=== PATIENT | male | born 2000 | race Two or more races ===

== ENCOUNTER → 2021-03-18 | Outpatient (CLI) | payer OTHER ==
[2021-03-18 12:10] LABS: ALBUMIN 3.5 g/dL (3.4-5.0); ALBUMIN/GLOBULIN RATIO 1.1 (1.0-1.7); C REACTIVE PROTEIN 179.9 mg/L (0-3.3); CALCIUM 8.7 mg/dL (8.5-10.1); CREATININE 0.8 mg/dL (0.7-1.3); TOTAL BILIRUBIN 0.9 mg/dL (0.2-1.0); TOTAL PROTEIN 6.8 g/dL (6.4-8.2)
[2021-03-18 12:20] LABS: BASO % 0 % (0-3); EOS # 0.1 x10^3/uL (0.0-0.7); EOS % 1 % (0-3); HEMATOCRIT 48.5 % (39.0-53.0); HEMOGLOBIN 16.3 g/dL (13.0-17.5); LYMPH # 1.6 x10^3/uL (1.0-4.8); LYMPH % 10 % (24-48); MEAN CORPUSCULAR HEMOGLOBIN 30 pg (25-35); MEAN CORPUSCULAR HGB CONC 34 g/dL (31-37); MEAN CORPUSCULAR VOLUME 88 fL (79-100); MONO # 1.5 x10^3/uL (0.0-1.1); MONO % 9 % (0-9); NEUT % 80 % (31-73); PLATELET COUNT 144 x10^3/uL (140-400); RED CELL DISTRIBUTION WIDTH 13.4 % (11.5-14.5); WHITE BLOOD COUNT 16.2 x10^3/uL (4.0-11.0)
[2021-03-18 13:51] LABS: SEDIMENTATION RATE 32 (0-15)
[2021-03-18 14:34] LABS: % ATYL 9 % (0-0); % BANDS 4 % (0-9); % LYMPHS 8 % (24-48); % MONOS 11 % (0-10); % SEGS 68 % (35-66)
[2021-03-18 14:36] LABS: PLT ESTIMATE ADEQUATE (ADEQUATE)
== END ==
LOC: SPEC 11:12 → EEVIPCON 11:12
PROVIDERS: ATTEND Family Medicine
DX: L03.317 Cellulitis of buttock (principal)
CPT/HCPCS: 36415; 80053; 85007; 85025; 85651; 86140

== ENCOUNTER → 2021-03-18 | Outpatient (CLI) | payer OTHER | LOC: SPEC 00:15 | PROVIDERS: ATTEND Emergency Medicine | DX: A41.9 Sepsis, unspecified organism (principal); Z53.8 Procedure and treatment not carried out for other reasons | CPT/HCPCS: 36415 ==

== ENCOUNTER → 2021-03-20 | Outpatient (CLI) | payer OTHER ==
[2021-03-21 00:09] LABS: BASO # 0.1 x10^3/uL (0.0-0.2); BASO % 1 % (0-3); EOS # 0.1 x10^3/uL (0.0-0.7); EOS % 1 % (0-3); HEMATOCRIT 48.7 % (39.0-53.0); HEMOGLOBIN 16.6 g/dL (13.0-17.5); LYMPH # 2.4 x10^3/uL (1.0-4.8); LYMPH % 16 % (24-48); MEAN CORPUSCULAR HEMOGLOBIN 30 pg (25-35); MEAN CORPUSCULAR HGB CONC 34 g/dL (31-37); MEAN CORPUSCULAR VOLUME 88 fL (79-100); MONO % 7 % (0-9); NEUT # 11.4 x10^3uL (1.8-7.7); NEUT % 76 % (31-73); PLATELET COUNT 213 x10^3/uL (140-400); RED BLOOD COUNT 5.55 x10^6/uL (4.30-5.70); RED CELL DISTRIBUTION WIDTH 13.5 % (11.5-14.5)
[2021-03-21 00:34] LABS: ANION GAP 13 (6-14); BLOOD UREA NITROGEN 5 mg/dL (8-26); BUN/CREATININE RATIO 6 (6-20); CALCIUM 9.3 mg/dL (8.5-10.1); CARBON DIOXIDE 28 mmol/L (21-32); CHLORIDE 101 mmol/L (98-107); CREATININE 0.8 mg/dL (0.7-1.3); GLUCOSE 89 mg/dL (70-99); POTASSIUM 3.7 mmol/L (3.5-5.1); SODIUM 142 mmol/L (136-145)
[2021-03-21 00:47] LABS: ALBUMIN 3.8 g/dL (3.4-5.0); ALK PHOS 126 U/L (46-116); ALT (SGPT) 41 U/L (16-63); AST (SGOT) 26 U/L (15-37); TOTAL BILIRUBIN 0.5 mg/dL (0.2-1.0); TOTAL PROTEIN 7.6 g/dL (6.4-8.2); VANC TR 4.2 mcg/mL (10.0-20.0)
== END ==
LOC: LAB 23:12
PROVIDERS: ATTEND Family Medicine
DX: L03.317 Cellulitis of buttock (principal)
CPT/HCPCS: 36415; 80053; 80202; 85025